=== PATIENT | female | born 1970 | race Caucasian/White ===

== ENCOUNTER 2018-05-27 13:30 | Emergency (ER) | payer MEDICARE, MEDICAID ==
[~2018-05-27] VITALS: Ht 170.2 cm; Wt 80.7 kg
[2018-05-27 13:38] VITALS: BP_SYST 138
[2018-05-27] MEDS ORDERED: ONDANSETRON 4 MG ODT TAB PO ONE (14:00)
[2018-05-27] MEDS ORDERED: BACITRACIN 1 GM OINT TP ONE (14:00)
[2018-05-27] MEDS ORDERED: MORPHINE 4 MG/ML INJ. SYRINGE IM ONE (14:30)
[2018-05-27 16:02] VITALS: BP_SYST 132
== END 2018-05-27 16:02 | disposition home or self-care (01) ==
LOC: SED 13:30
DX: S63.501A Unspecified sprain of right wrist, initial encounter (principal); S80.01XA Contusion of right knee, initial encounter; S00.81XA Abrasion of other part of head, initial encounter; S80.212A Abrasion, left knee, initial encounter; R55 Syncope and collapse; R03.0 Elevated blood-pressure reading, without diagnosis of hypertension; Z98.51 Tubal ligation status; W01.0XXA Fall on same level from slipping, tripping and stumbling without subsequent striking against object, initial encounter; Y93.89 Activity, other specified; Y92.89 Other specified places as the place of occurrence of the external cause; Y99.8 Other external cause status
CPT/HCPCS: 29125; 70450; 70486; 73110; 73564; 96372; 99284; J2270; Q0162